=== PATIENT | female | born 1995 | race Caucasian/White ===

== ENCOUNTER → 2017-10-05 16:05 | Outpatient (CLI) | payer OTHER, SELFPAY | PROVIDERS: Visit Provider Nurse Practitioner Women's Health | DX: Z12.4 Encounter for screening for malignant neoplasm of cervix (principal) ==

== ENCOUNTER → 2017-11-12 16:19 | Outpatient (CLI) | payer OTHER, SELFPAY ==
--- NOTE | 2017-11-12 16:21 | US_ITS ---
STUDY: ULTRASOUND TRANSVAGINAL CLINICAL: Female, 22 years old. Lower pelvic pain TECHNIQUE: Transvaginal COMPARISON: None. FINDINGS: Normal uterine size measuring 12.6 x 5.6 x 4.4 cm in maximal craniocaudal dimension. It is retroverted. There are no myometrial masses. Normal endometrial thickness measuring 12 mm and appears hyperechoic. There are no endometrial masses, and there is no fluid in the endometrial cavity. Nabothian cysts at the uterine cervix. Normal right ovary, measuring 4.3 x 3.3 x 1.8 cm. There are multiple follicles. A complex 2.1 x 1.6 x 1.2 cm cystic nodule is noted. Normal left ovary, measuring 3.6 x 2.1 x 1.8 cm. There are multiple follicles without a dominant cyst. There is moderate free fluid in the pelvis. US/Pelvic (Non ) IMPRESSION: Complex right adnexal cystic nodule. Slightly thickened endometrium. Retroverted uterus. Electronically Signed: Eric Meredith DO at 18:14 EST Tel [phone], Service support ,
--- NOTE | 2017-11-12 16:21 | US_ITS ---
STUDY: ULTRASOUND TRANSVAGINAL CLINICAL: Female, 22 years old. Lower pelvic pain TECHNIQUE: Transvaginal COMPARISON: None. FINDINGS: Normal uterine size measuring 12.6 x 5.6 x 4.4 cm in maximal craniocaudal dimension. It is retroverted. There are no myometrial masses. Normal endometrial thickness measuring 12 mm and appears hyperechoic. There are no endometrial masses, and there is no fluid in the endometrial cavity. Nabothian cysts at the uterine cervix. Normal right ovary, measuring 4.3 x 3.3 x 1.8 cm. There are multiple follicles. A complex 2.1 x 1.6 x 1.2 cm cystic nodule is noted. Normal left ovary, measuring 3.6 x 2.1 x 1.8 cm. There are multiple follicles without a dominant cyst. There is moderate free fluid in the pelvis. US/Transvaginal Non- IMPRESSION: Complex right adnexal cystic nodule. Slightly thickened endometrium. Retroverted uterus. Electronically Signed: Eric Meredith DO at 18:14 EST Tel [phone], Service support ,
== END ==
PROVIDERS: Visit Provider Obstetrics & Gynecology
DX: N80.9 Endometriosis, unspecified (principal)
CPT/HCPCS: 76830; 76856; 93976

== ENCOUNTER 2017-12-02 16:19 | Emergency (ER) | payer OTHER, SELFPAY ==
[2017-12-02 16:20] VITALS: BP 146/97; PULSE 85; RESP 16; TEMP 37.1; O2SAT 100; BMI 26.9
--- NOTE | 2017-12-02 16:54 | US_ITS ---
STUDY: ULTRASOUND TRANSVAGINAL CLINICAL: Female, 22 years old. Right lower quadrant pain TECHNIQUE: Transvaginal COMPARISON: None. FINDINGS: Normal uterine size measuring 7.9 x 5.2 x 4.4 cm in maximal craniocaudal dimension. It is retroverted. There are no myometrial masses. Normal endometrial thickness measuring 9 mm. There are no endometrial masses, and there is no fluid in the endometrial cavity. Nabothian cysts at the uterine cervix. Normal right ovary, measuring 4.3 x 3.3 x 2.3 cm. There is a 2.3 x 1.7 x 1.4 cm cyst. Normal left ovary, measuring 3.6 x 2.0 x 1.5 cm. There are multiple follicles. US/Transvaginal Non- IMPRESSION: Retroverted uterus. Nabothian cysts. Right ovarian cyst. Mild free fluid. Electronically Signed: Eric Meredith DO at 18:37 EDT Tel [phone], Service support ,
[2017-12-02] MEDS: Ketorolac 30 MG/ML Syringe IV (17:31)
[2017-12-02] MEDS: Ondansetron 4 MG/2 ML Vial IV ×2 (17:31→18:38)
[2017-12-02 17:48] LABS: Mucous, Urine 0 SEEN /hpf (<or=2+); Red Blood Cells-Urine 0 SEEN /hpf (0-5); White Blood Cells 0 SEEN /hpf (0-5)
[2017-12-02 17:51] LABS: Absolute Lymphocyte Count 2.47 X10^3/ul (0.83-4.51); Absolute Neutrophil Count 4.3 X10^3/uL (2.0-7.7); Basophil# 0.03 X10^3/uL; Basophil% 0.4 % (0-1); Hematocrit 38.9 % (37-47); Hemoglobin 13.5 g/dl (12.0-15.0); Lymphocyte # 2.47 X10^3/ul (4.0); Lymphocyte % 30.1 % (19-41); Mean Corp Hgb Conc 34.7 g/gl (32-36); Mean Corpuscular Hgb 32.1 pg (27.0-32.0); Mean Corpuscular Volume 92.6 fL (81-99); Mean Platelet Vol. 9.7 fl (6.2-12.0); Monocyte# 0.51 X10^3/uL; Monocyte% 6.2 % (0-10); Neutrophil # 4.25 X10^3/uL (2.7-7.7); Neutrophil % 51.8 % (47-70); Platelet Count 255 K/mm3 (150-450); RBC Distribution Width CV 12.1 % (11.6-14.6); RBC Distribution Width SD 40.4 fl (35.1-43.9); White Blood Count 8.2 K/mm3 (4.4-11.0)
[2017-12-02 17:54] LABS: POSITIVE COUNT NO; POSITIVE DIFFERENTIAL NO; POSITIVE MORPHOLOGY NO
[2017-12-02 17:57] LABS: Color, Urine Yellow (Yellow); Glucose, Dipstick Normal (Normal); Ketone-Dipstick Negative (Negative); Leukocyte Esterase-Dipstick Negative /ul (Negative); Nitrite-Dipstick Negative (Negative); Occult Blood-Urine Negative /ul (Negative); Protein-Dipstick Negative (Negative); Specific Gravity, Urine 1.015 (1.002-1.030); Urine Bilirubin Dipstick Negative (Negative); Urine Clarity Clear (Clear); Urine Urobilinogen Normal (Normal)
[2017-12-02 18:10] LABS: Anion Gap 5 (5-15); BUN 12 mg/dL (7-18); BUN/Creat Ratio 15.1 RATIO (10-20); Calcium,Total 8.5 mg/dL (8.5-10.1); Chloride 106 mmol/L (98-107); EST Glomerular Filtration Rate 94 mL/min (>60); Est Glom Filt Rate - Afr Amer 113 mL/min (>60); Estimated Creatinine Clearance 101.51 ml/min; Glucose 83 mg/dL (74-106); Potassium 3.5 mmol/L (3.5-5.1); Sodium Level 139 mmol/L (136-145)
[2017-12-02 18:26] LABS: Bacteria RARE /hpf (None Seen); Squamous Epithelial Cells - UA 0-5 SEEN /hpf (5-10)
[2017-12-02 18:33] LABS: Pregnancy, Serum, hCG Quali. NEGATIVE Negative (0-9 Nonpreg)
[2017-12-02] MEDS: Morphine 4 MG/ML Syringe IV (18:38)
--- NOTE | 2017-12-02 19:29 | ED.VISSUMM ---
- ER Visit Summary Date of Service: 12/02/17 Chief Complaint: Abdominal pain History of Present Illness: The patient is a 22 F with a 3 day history of right lower quadrant abdominal pain. She denies fever or chills. She denies nausea, vomiting, or diarrhea. Pain is not worsened with food. She does state pain is somewhat worse with movement. She tried taking a leftover Percocet last night without significant improvement. Patient does have a known history of endometriosis and is scheduled for surgery in the coming weeks. Physical Examination: Vital signs are unremarkable. Patient is in no acute distress and is nontoxic appearing. Head and neck examination is unremarkable. Heart is regular rate and rhythm. On lung sounds are clear. Abdomen is soft with focal tenderness in the right lower quadrant. There is no guarding or rebound. Test Results: CBC and chemistry studies are normal. Urinalysis is normal. test is negative. Pelvic ultrasound reveals a right ovarian cyst. Mild free fluid is noted. Good blood flow is noted to both ovaries. Emergency Department Course and Treatment: Patient initially declined anything for pain and then asked for something. She is given Toradol and Zofran. Following her ultrasound she requested something stronger and was given a dose of morphine. I spoke with Dr. Constantino, her reception. She is comfortable with this prescribing Percocet for the patient. Test results were discussed with the patient and questions were answered. Treatment Plan: [] Disposition: Discharge Impression: Right ovarian cyst This note was generated with [employer] dictation software. It may contain incorrect words, spelling, and punctuation that were not noted in review of the chart prior to signing ED Disposition - Plan for ED Patient: Disposition: Home or Assisted Living Chief Complaint: Abd Pain Instructions: ED Cyst Ovarian Prescriptions: Oxycodone HCl/Acetaminophen [Percocet 5/325] 1 - 2 tablet PO Q6H PRN PRN 4 Days #20 tablet PRN Reason: Pain Referrals: Malcolm Stallings MD [Primary Care Provider] - Latosha Constantino MD [STAFF PHYSICIAN] - 5-7 Days
--- NOTE | 2017-12-02 19:32 | DCINST.ED_ITS ---
ED Disposition - Plan for ED Patient: Disposition: Home or Assisted Living Chief Complaint: Abd Pain Instructions: ED Cyst Ovarian Prescriptions: Oxycodone HCl/Acetaminophen [Percocet 5/325] 1 - 2 tablet PO Q6H PRN PRN 4 Days #20 tablet PRN Reason: Pain Referrals: Malcolm Stallings MD [Primary Care Provider] - Latosha Constantino MD [STAFF PHYSICIAN] - 5-7 Days
[2017-12-02 19:44] VITALS: BP 125/79; PULSE 64; RESP 16; O2SAT 98
== END 2017-12-02 19:45 | disposition home or self-care (01) ==
PROVIDERS: Emergency Provider Emergency Medicine; Family Provider Family Medicine; PCP Family Medicine
DX: N83.201 Unspecified ovarian cyst, right side (principal); N80.9 Endometriosis, unspecified; Z79.891 Long term (current) use of opiate analgesic; Z72.0 Tobacco use
CPT/HCPCS: 76830; 80048; 81001; 84703; 85025; 93976; 96374; 96375; 96376; 99283; A4216; J2405

== ENCOUNTER → 2017-12-03 18:26 | Outpatient (CLI) | payer OTHER, SELFPAY ==
--- NOTE | 2017-12-03 18:33 | US_ITS ---
STUDY: ULTRASOUND OF THE PELVIS CLINICAL: Female, 22 years old. Right lower quadrant pain TECHNIQUE: Transvaginal and transabdominal COMPARISON: None. FINDINGS: Normal uterine size measuring 7.6 x 4.6 x 5.8 cm in maximal craniocaudal dimension. It is retroverted There are no myometrial masses. The endometrial thickness measures 9 mm with mild heterogeneity. There are no endometrial masses, and there is no fluid in the endometrial cavity. Nabothian cysts at the uterine cervix. Normal right ovary, measuring 4.8 x 3.2 x 2.3 cm. There is a 2.5 x 2 x 1.4 cm cyst. Normal left ovary, measuring 3.4 x 2.1 x 1.5 cm. There are multiple follicles without a dominant cyst. There is mild free fluid in the pelvis. The urinary bladder measures 249 cc in volume with debris noted. US/Transvaginal Non- IMPRESSION: Retroverted uterus. Mildly heterogeneous endometrium. Right ovarian cyst. Mild pelvic fluid. There is debris within the urinary bladder. Infectious etiology cannot be excluded. Electronically Signed: Eric Meredith DO at 22:02 EDT Tel [phone], Service support ,
--- NOTE | 2017-12-03 19:07 | US_ITS ---
STUDY: ULTRASOUND OF THE PELVIS CLINICAL: Female, 22 years old. Right lower quadrant pain TECHNIQUE: Transvaginal and transabdominal COMPARISON: None. FINDINGS: Normal uterine size measuring 7.6 x 4.6 x 5.8 cm in maximal craniocaudal dimension. It is retroverted There are no myometrial masses. The endometrial thickness measures 9 mm with mild heterogeneity. There are no endometrial masses, and there is no fluid in the endometrial cavity. Nabothian cysts at the uterine cervix. Normal right ovary, measuring 4.8 x 3.2 x 2.3 cm. There is a 2.5 x 2 x 1.4 cm cyst. Normal left ovary, measuring 3.4 x 2.1 x 1.5 cm. There are multiple follicles without a dominant cyst. There is mild free fluid in the pelvis. The urinary bladder measures 249 cc in volume with debris noted. US/Pelvic (Non ) IMPRESSION: Retroverted uterus. Mildly heterogeneous endometrium. Right ovarian cyst. Mild pelvic fluid. There is debris within the urinary bladder. Infectious etiology cannot be excluded. Electronically Signed: Eric Meredith DO at 22:02 EDT Tel [phone], Service support ,
== END ==
PROVIDERS: Family Provider Family Medicine; PCP Family Medicine; Visit Provider Obstetrics & Gynecology
DX: R10.31 Right lower quadrant pain (principal)
CPT/HCPCS: 76830; 76856; 93976

== ENCOUNTER 2017-12-09 10:19 | Day surgery (SDC) | payer SELFPAY ==
[2017-12-09] VITALS (7 sets, daily range): BP systolic 103–128; BP diastolic 68–82; PULSE 50–88; RESP 14–16; TEMP 36.2–37.6; O2SAT 97–100; BMI 26.2
[2017-12-09 10:41] LABS: Internal QC Validated? YES +Cl - CLEAR BKGD; Pregnancy, Urine Negative Negative
--- NOTE | 2017-12-09 12:35 | OV_PTH ---
PATIENT: LILIANA ROTH LOC: [facility] U#:[id number] AGE/SX: 22/F ROOM: RE12/09/[address]: Dr. Latosha Constantino MD : 1995 BED: DIS: 12/09/2017 SPEC #: [id number] RECD: 12/09/17 16:10 STATUS: JOYCE TRICIA #: [id number] MATTY: 12/09/17 12:[address]: Latosha Constantino DEPT: SURGICAL PATHOLOGY RECD BY: Raymond Scruggs ENTERED: 12/10/17 08:03 SP TYPE: OVARY OTHR DR: Dr. Malcolm Stallings MD Tissues: Right ovary Procedures: Surgery Specimen Level IV HEADER OPERATION: Diagnostic laparoscopy, ovarian cystectomy, oophorectomy PRE-OP DIAGNOSIS: Endometriosis, cyst of right ovary TISSUE SUBMITTED: Right ovary MICROSCOPIC DIAGNOSIS Right ovary, oophorectomy: Physiologic hemorrhagic follicular and corpus luteum cysts. SJ:annika 12/11/17 MICROSCOPIC DESCRIPTION Slides are reviewed. GROSS DESCRIPTION Received in fixative is one container labeled with the patient's name and designated right ovary. The specimen consists of a smooth, glistening, white-pradhan ovary measuring 4 x 3 x 2.2 cm and weighing 12.2 gm. The external surface is smooth and glistening. No papillary projections or excrescences are identified. The external surface is inked and the specimen serially sectioned. Sections reveal multiple cysts ranging in size from 0.2 to 1 cm and containing clear to bloody fluid. [employer] sections are submitted in four cassettes. / AM:annika 12/10/17 TC:5 CPT: 92480
[2017-12-09] MEDS: Bupivacaine 0.25% 30 ML Vial (13:30)
--- NOTE | 2017-12-09 14:42 | DCINST_ITS ---
Discharge Diet: No Restrictions - Increase fluid intake for the next 48 hours. Discharge Activity: Return to Normal Activity, May Drive - when you are no longer taking narcotic pain medications., May Shower, May Take a Tub Bath - in 7 days Additional Activity Instructions:: Ambulate often the next week after surgery. Nothing in the vagina for 5 days. Call your doctor if your incision/area has: Continuous Slow Oozing, Sudden Increased Bleeding, Increased Pain/ Swelling, Increased Redness, Foul Smelling Discharge Call your doctor if you observe: Fever of 101 or Higher Allergies/Adverse Reactions: Allergies No Known Allergies Allergy (Verified 12/08/17 16:01) Medications to take at Discharge naproxen 500 mg tablet,delayed release 500 mg PO BID PRN #30 tab 10/05/17 Oxycodone HCl/Acetaminophen [Percocet 5/325] 1 - 2 tab PO Q6H PRN PRN 4 Days # 20 tab 12/02/17 Ibuprofen [Advil] 200 mg PO Q4H PRN PRN 12/08/17 Naproxen [Naprosyn] 250 - 500 mg PO Q8H PRN PRN #30 tab 12/09/17 Naproxen [Naprosyn] 250 - 500 mg PO Q8H PRN PRN #30 tab 12/09/17 Oxycodone HCl/Acetaminophen [Percocet 5-325] 1 - 2 tablet PO Q4H PRN PRN 3 Days #15 tablet 12/09/17 The following prescriptions were given: Oxycodone HCl/Acetaminophen [Percocet 5-325] 1 - 2 tablet PO Q4H PRN PRN 3 Days #15 tablet PRN Reason: Pain Naproxen [Naprosyn] 250 - 500 mg PO Q8H PRN PRN #30 tab PRN Reason: MILD PAIN Naproxen [Naprosyn] 250 - 500 mg PO Q8H PRN PRN #30 tab PRN Reason: MILD PAIN Primary Care Physician: Malcolm Stallings MD [Primary Care Provider] - Please Follow Up With: Latosha Constantino MD - [phone]
[2017-12-09] MEDS: Ketorolac 30 MG/ML Syringe IV (14:53)
--- NOTE | 2017-12-09 14:53 | OP.PCM_ITS ---
Problem List (1) Ovarian cyst Status: Acute Qualifiers: Comment: Right side (2) Endometriosis Status: Chronic Comment: failed OCP, IUD, Nuvaring. plan diagnostic laparoscopy then continuous ocp versus depot lupron. Report of Operation Date of Procedure: 12/09/17 Pre-Operative Diagnosis: right pelvic pain, endometriosis, right ovarian cyst Post-Operative Diagnosis: same Surgery/Procedure Performed:: diagnostic laparoscopy right salpingooophorectomy Description of Surgical Findings:: Enlarged right multicystic ovary with increased blood flow hemorrhagic cyst and irregular appearance normal pelvis normal appendix normal liver and gallbladder co director: Magdi Rodrigues Type of Anesthesia:: General Specimen's removed: ovary Estimated Blood Loss (mL): minimal Fluids Replaced: crystalloid Description of Procedure: Patient was taken to the operating room and placed under general anesthesia was prepped and draped in normal sterile fashion in the dorsal lithotomy position. Bladder was drained of clear urine and SCDs on preoperatively. Uterine manipulator was placed inside the uterus after the uterus sounded 9 cm. Attention was paid to the abdomen and an infraumbilical incision was made and Veress needle entered into the abdomen confirmed the intra-abdominal with an opening pressure of 0 mmHg. Abdomen was insufflated with CO2 gas to allow passage of a veres needle. A 5 mm port was placed the umbilicus under direct visualization and right and left lower quadrant 5 mm ports were also placed under direct visualization. Pelvis was well visualized and the right ovary was noted to be significantly enlarged with a multicystic appearance and increased blood flow. Patient had a history of reporting severe pain in this area and requested removal. Multiple incisions were made into the ovary to help open up and dissected tissue and it was multicystic and irregular in appearance. The decision was made to remove the right ovary. Using LigaSure device the infundibulopelvic ligament and the utero-ovarian ligament were incised and the ovary was removed. The rest the pelvis and upper abdomen were well visualized and noted be within normal limits. No significant endometriosis was seen. Left ovary and fallopian tube are noted to be within normal limits. The ovary was removed through an enlarged umbilical port site which was then closed with a Levy Osman with an 0 Vicryl into the fascia. Left lower quadrant ports removed under direct visualization and all instruments removed from the abdomen and vagina. Port sites were closed with 3-0 Monocryl. Patient was awoken and taken recovery in stable condition Grafts/Implants Used: none - Complications none
[2017-12-09] MEDS: HYDROcodone Bitartrate/Apap 5/325 Tablet PO (15:32)
== END 2017-12-09 16:13 | disposition home or self-care (01) ==
LOC: SDC 10:21 → AC 10:22
PROVIDERS: Anesthesiology; Family Provider Family Medicine; PCP Family Medicine; Visit Provider Obstetrics & Gynecology
PROC: (CPT 58661; principal; 2017-12-09 12:20)
DX: N83.11 Corpus luteum cyst of right ovary (principal); N83.01 Follicular cyst of right ovary; N80.9 Endometriosis, unspecified; R10.2 Pelvic and perineal pain; F17.200 Nicotine dependence, unspecified, uncomplicated; Z79.1 Long term (current) use of non-steroidal anti-inflammatories (NSAID); Z79.891 Long term (current) use of opiate analgesic
CPT/HCPCS: 58661; 36415; 81025; 86850; 86900; 88305; J7120; J2405

== ENCOUNTER → 2018-02-16 15:39 | Outpatient (CLI) | payer OTHER, SELFPAY ==
[2018-02-16 17:20] LABS: Estradiol 53.7 pg/mL; Thyroid Stim Hormone (TSH) 1.62 uIU/mL (0.358-3.74)
== END ==
PROVIDERS: Family Provider Family Medicine; PCP Family Medicine; Visit Provider Obstetrics & Gynecology
DX: N92.6 Irregular menstruation, unspecified (principal)
CPT/HCPCS: 36415; 82670; 83001; 84443

== ENCOUNTER → 2018-06-08 11:27 | Outpatient (CLI) | payer OTHER, SELFPAY ==
[2018-06-08 12:39] LABS: hCG Titer Quant., Serum 1468 mIU/mL (<9 non-preg)
== END ==
PROVIDERS: Family Provider Family Medicine; PCP Family Medicine; Referring Provider Family Medicine; Visit Provider Obstetrics & Gynecology
DX: O20.0 Threatened abortion (principal)
CPT/HCPCS: 36415; 84702

== ENCOUNTER → 2018-06-10 14:29 | Outpatient (CLI) | payer OTHER, SELFPAY ==
[2018-06-10 17:46] LABS: hCG Titer Quant., Serum 3137 mIU/mL (<9 non-preg)
== END ==
PROVIDERS: Family Provider Family Medicine; PCP Family Medicine; Visit Provider Obstetrics & Gynecology
DX: O20.0 Threatened abortion (principal)
CPT/HCPCS: 36415; 84702

== ENCOUNTER → 2018-06-28 15:58 | Outpatient (CLI) | payer OTHER, SELFPAY ==
--- NOTE | 2018-06-28 16:00 | US_ITS ---
STUDY: FIRST TRIMESTER OBSTETRICAL ULTRASOUND REASON FOR EXAM: Female, 23 years old. DATES / VIABILITY LMP: TECHNIQUE: Transvaginal TECHNICAL QUALITY: Adequate. PRIOR ULTRASOUND: Prior comparison studies are not available for review at this time. FINDINGS: There is visualization of a single gestational sac in a normal intrauterine position. The mean sac diameter (MSD) measures 30mm, indicating an estimated gestational age (EGA) of 8 weeks, 2 days. The gestational sac shape is within normal limits. There is a visualized yolk sac. The yolk sac measures 3.5mm. The placenta is non-visualized. There is visualization of a live embryo. The crown-rump length (CRL) measures 13mm, indicating an estimated gestational age (EGA) of 7 weeks, 4 days. There is demonstrated cardiac activity with a heart rate of 160 bpm. The estimated gestation age (EGA) by LMP is 7 weeks, 3 days. The estimated date of delivery (RAAD) by LMP is 6.7.19. The estimated gestation age (EGA) by US is 8 weeks, 0 days. The estimated date of delivery (RAAD) by US is 6.03.19. The uterus measures [id number]. There is no demonstrated uterine fibroid. The cervix is closed. The right ovary is not seen. The left ovary measures 40 x 22 x 23mm. There is no left ovarian cyst. There is no visualized left adnexal mass or complex lesion. There is no fluid in the cul de sac. US/Transvaginal w/Preg US IMPRESSION: There is a single live intrauterine with a heart rate of 160 bpm. The estimated gestation age (EGA) by US is 8 weeks, 0 days. The estimated date of delivery (RAAD) by US is 6.03.18. Electronically Signed: Lukasz Jara MD at 22:24 EDT , Service support ,
== END ==
PROVIDERS: Family Provider Family Medicine; PCP Family Medicine; Referring Provider Obstetrics & Gynecology; Visit Provider Obstetrics & Gynecology
DX: O09.10 Supervision of pregnancy with history of ectopic pregnancy, unspecified trimester (principal)
CPT/HCPCS: 76817

== ENCOUNTER → 2018-07-05 10:48 | Outpatient (CLI) | payer OTHER, SELFPAY ==
[2018-07-05 12:37] LABS: Absolute Lymphocyte Count 1.31 X10^3/ul (0.83-4.51); Absolute Neutrophil Count 4.1 X10^3/uL (2.0-7.7); Basophil# 0.01 X10^3/uL; Basophil% 0.2 % (0-1); Eosinophil# 0.08 X10^3/uL; Eosinophils% 1.3 % (0-5); Hematocrit 34.8 % (37-47); Hemoglobin 12.1 g/dl (12.0-15.0); Lymphocyte # 1.31 X10^3/ul (4.0); Lymphocyte % 21.5 % (19-41); Mean Corp Hgb Conc 34.8 g/gl (32-36); Mean Corpuscular Hgb 32.2 pg (27.0-32.0); Mean Corpuscular Volume 92.6 fL (81-99); Mean Platelet Vol. 9.9 fl (6.2-12.0); Monocyte# 0.53 X10^3/uL; Monocyte% 8.7 % (0-10); Neutrophil # 4.14 X10^3/uL (2.7-7.7); Platelet Count 259 K/mm3 (150-450); RBC Distribution Width SD 39.5 fl (35.1-43.9); Red Blood Count 3.76 M/mm3 (4.2-5.4); White Blood Count 6.1 K/mm3 (4.4-11.0)
[2018-07-05 12:41] LABS: POSITIVE COUNT NO; POSITIVE DIFFERENTIAL NO; POSITIVE MORPHOLOGY NO
[2018-07-05 13:32] LABS: HIV - WCH Non-Reactive (Nonreactive); Rubella IgG 101.6 IU/mL
[2018-07-05 20:36] LABS: Chlamydia Trachomatis by PCR Negative (Negative); Neisserai gonorrhoeae by PCR Negative (Negative); Probe Check PASS; Sample Adequacy Control PASS; Specimen Processing Control PASS
[2018-07-06 10:55] LABS: HEPATITIS B SURFACE AG Negative (Negative)
[2018-07-09 01:58] LABS: Rapid Plasmin Reagin (RPR) NONREACTIVE (NONREACTIVE)
== END ==
PROVIDERS: Nurse Practitioner Women's Health; Referring Provider Obstetrics & Gynecology; Visit Provider Obstetrics & Gynecology
DX: Z34.90 Encounter for supervision of normal pregnancy, unspecified, unspecified trimester (principal)
CPT/HCPCS: 85025; 86592; 86703; 86762; 86850; 86900; 87086; 87340; 87491; 87591

== ENCOUNTER → 2018-10-18 10:58 | Outpatient (CLI) | payer OTHER, SELFPAY ==
[2018-10-18 10:33] VITALS: BMI 24.5
== END ==
PROVIDERS: Family Provider Family Medicine; PCP Family Medicine; Referring Provider Nurse Practitioner Women's Health; Visit Provider Nurse Practitioner Women's Health
DX: O26.892 Other specified pregnancy related conditions, second trimester (principal); R10.2 Pelvic and perineal pain; Z3A.00 Weeks of gestation of pregnancy not specified
CPT/HCPCS: 87070; 87086; 87205

== ENCOUNTER → 2018-11-05 14:05 | Outpatient (CLI) | payer OTHER, SELFPAY ==
[2018-11-05 13:47] VITALS: BMI 24.5
[2018-11-05 15:13] LABS: Absolute Lymphocyte Count 1.53 X10^3/ul (0.83-4.51); Absolute Neutrophil Count 6.3 X10^3/uL (2.0-7.7); Basophil# 0.01 X10^3/uL; Basophil% 0.1 % (0-1); Eosinophils% 1.2 % (0-5); Hematocrit 30.4 % (37-47); Hemoglobin 10.5 g/dl (12.0-15.0); Lymphocyte # 1.53 X10^3/ul (4.0); Lymphocyte % 18.1 % (19-41); Mean Corp Hgb Conc 34.5 g/gl (32-36); Mean Corpuscular Hgb 32.6 pg (27.0-32.0); Mean Corpuscular Volume 94.4 fL (81-99); Mean Platelet Vol. 9.4 fl (6.2-12.0); Monocyte# 0.44 X10^3/uL; Monocyte% 5.2 % (0-10); Neutrophil % 74.6 % (47-70); POSITIVE COUNT NO; POSITIVE DIFFERENTIAL NO; POSITIVE MORPHOLOGY NO; Platelet Count 208 K/mm3 (150-450); RBC Distribution Width CV 12.7 % (11.6-14.6); RBC Distribution Width SD 43.3 fl (35.1-43.9); Red Blood Count 3.22 M/mm3 (4.2-5.4); White Blood Count 8.5 K/mm3 (4.4-11.0)
[2018-11-05 15:32] LABS: Glucose Challenge Gest 1H 50g 159 mg/dL (70-140)
== END ==
PROVIDERS: Family Provider Family Medicine; PCP Family Medicine; Referring Provider Obstetrics & Gynecology; Visit Provider Obstetrics & Gynecology
DX: Z34.90 Encounter for supervision of normal pregnancy, unspecified, unspecified trimester (principal)
CPT/HCPCS: 36415; 82950; 85025

== ENCOUNTER → 2018-11-11 08:02 | Outpatient (CLI) | payer OTHER, SELFPAY ==
[2018-11-05 13:47] VITALS: BMI 24.5
[2018-11-11 08:46] LABS: Glucose GTT-Gestation. Fasting 91 mg/dL (<105)
[2018-11-11 09:59] LABS: Glucose GTT-Gestational 1 Hr 188 mg/dL (<190)
[2018-11-11 10:55] LABS: Glucose GTT-Gestational 2 Hr 143 mg/dL (<165)
[2018-11-11 11:46] LABS: Glucose GTT-Gestational 3 Hr 58 L (<145)
== END ==
PROVIDERS: Family Provider Family Medicine; PCP Family Medicine; Referring Provider Obstetrics & Gynecology; Visit Provider Obstetrics & Gynecology
DX: O99.810 Abnormal glucose complicating pregnancy (principal); Z3A.00 Weeks of gestation of pregnancy not specified
CPT/HCPCS: 36415; 82951; 82952

== ENCOUNTER 2019-01-20 05:10 | Outpatient (CLI) | payer OTHER, SELFPAY ==
[2019-01-12 11:02] VITALS: BMI 27.2
[2019-01-20 06:16] VITALS: BMI 28.3
--- NOTE | 2019-01-27 21:01 | OB.TRI.PN_ITS ---
Progress Notes Date of Service: 01/20/19 Progress Note: Patient presented with irregular contractions no cervical change heart tones 130s moderate variability reactive no decelerations category 1 tracing [place]: Irregular Assessment and plan false labor DC home labor precautions reactive NST
== END 2019-01-20 06:15 | disposition home or self-care (01) ==
LOC: WPOUT 06:05 → WP 06:06
PROVIDERS: Family Provider Family Medicine; PCP Family Medicine; Referring Provider Obstetrics & Gynecology; Visit Provider Obstetrics & Gynecology
DX: O47.9 False labor, unspecified (principal); Z3A.00 Weeks of gestation of pregnancy not specified
CPT/HCPCS: 59025; 59050; 99218; G0378

== ENCOUNTER → 2019-01-21 | Outpatient (CLI) | payer OTHER, SELFPAY ==
[2019-01-21 14:22] VITALS: BMI 28.3
== END | disposition home or self-care (01) ==
PROVIDERS: Family Provider Family Medicine; PCP Family Medicine; Referring Provider Obstetrics & Gynecology; Visit Provider Obstetrics & Gynecology
DX: Z34.93 Encounter for supervision of normal pregnancy, unspecified, third trimester (principal)
CPT/HCPCS: 87081

== ENCOUNTER 2019-02-02 00:28 | Outpatient (CLI) | payer OTHER, SELFPAY ==
[2019-01-26 10:28] VITALS: BMI 28.3
[2019-02-02 01:01] VITALS: BMI 29.2
--- NOTE | 2019-02-02 02:06 | OB.TRI.PN_ITS ---
Progress Notes Date of Service: 02/02/19 Progress Note: contractions no vb lof fht 130 moderate variability reactive no decelerations category I tracing [place]: irregular 2-3 cm a/p false labor no cervical change dc home
== END 2019-02-02 02:15 | disposition home or self-care (01) ==
LOC: WPOUT 00:58 → WP 00:58
PROVIDERS: Family Provider Family Medicine; PCP Family Medicine; Visit Provider Obstetrics & Gynecology
DX: O47.9 False labor, unspecified (principal); Z3A.00 Weeks of gestation of pregnancy not specified
CPT/HCPCS: 59025; 59050; 99218; G0378

== ENCOUNTER 2019-02-06 20:45 | Inpatient (IN) | payer OTHER, SELFPAY ==
[2019-02-04 13:50] VITALS: BMI 29.2
[2019-02-06 10:45] VITALS: BMI 28.7
[2019-02-06 20:41] LABS: ROM Internal Control Test YES-OK TO RESULT pt. (Internal QC)
[2019-02-06 20:43] LABS: ROM Patient Test POSITIVE (Negative)
[2019-02-06] MEDS: Lactated Ringers 1,000 ML 50 ML IV ×2 (21:15→22:15)
--- NOTE | 2019-02-06 21:26 | HP.PCM_ITS ---
- Problem List (1) SROM (spontaneous rupture of membranes) Status: Acute (2) Abnormal glucose affecting Status: Acute Comment: Normal 3GTT (3) Anemia affecting Status: Acute Qualifiers: (4) Depression affecting Status: Acute Comment: did not take zoloft (5) Syncope Status: Acute Qualifiers: (6) Status: Acute Qualifiers: Comment: declines genetic screen, AFP. MFM anatomy US- 09/13/17 normal pt notified. 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 plan diagnostic laparoscopy then continuous ocp versus depot lupron. 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 she has had prodromal contractions for several days and denies any issues. she denies vb and admits good fm. Medical History: Medical History (Last Reviewed 02/04/19 @ 13:49 by Cristy Anne) Syncope (Acute) R55 (Acute) Z34.90 declines genetic screen, AFP. MFM anatomy US- 09/13/17 normal pt notified. Supervision of normal (Acute) Z34.90 PRR RAAD 02/11/19 boy PC:Michael :Taj Prior child unilateral cleft lip/palate (Chronic) Ovarian cyst (Chronic) N83.209 Right side Endometriosis (Chronic) N80.9 failed OCP, IUD, Nuvaring. plan diagnostic laparoscopy then continuous ocp versus depot lupron. Endometriosis N80.9 Hypertension affecting in first trimester (Resolved) O16.1 Surgical History: Surgical History (Last Reviewed 02/04/19 @ 13:49 by Cristy Anne) H/O laparoscopy Z98.890 History of right oophorectomy Z90.721 fallopian tube removed Allergies No Known Allergies Allergy (Verified 02/06/19 20:18) Home Medications: Home Medications docosahexanoic acid 200 mg capsule 1 cap PO DAILY cap 07/05/18 Acyclovir 400 mg PO BID 02/02/19 Smoking Status: Light Smoker (<10/day) History Past Pregnancies: Past Pregnancies Pregancy History 3 Elective abortions Hx Para 1 Spontaneous abortions Hx # Term Pregnancies Ectopic pregnancies 1 Hx # Pregnancies Multiple births # of living children Past Pregnancies Del. Date Name GA/Weeks Outcome Route Bth Weight Gen Labor Lgth Anesthesia Del Locatn Provider FOB 01/19/15 Michael 40 live - full term 7lbs 1.2oz Male [address] [facility] Dr. Valle 01/05/17 ectopic salpingectomy Delivery Date: 01/05/17 No notes to display Delivery Date: 01/19/15 On 07/05/18 @ 09:48 Shital Vazquez No issues during . No issues during delivery. Michael has cleft palate. Labs: Mom's Problem List Problem Status Onset Code SROM (spontaneous rupture of membranes) Acute Mom's Labs & Results 02/06/19 02/06/19 02/06/19 20:05 21:15 21:15 WBC Pending RBC Pending Hgb Pending Hct Pending MCV Pending MCH Pending MCHC Pending RDW Pending RDW Differential Pending Plt Count Pending Neut % (Auto) Pending Absolute Neuts (auto) Pending Total Counted Pending Vag Amniotic Fld Detect POSITIVE H Blood Type Pending Antibody Screen Pending Course Did the patient receive Yes care? Labs RPR/VDRL/Syphilis Nonreactive Rubella status Immune HbSAg Negative Date Done: 07/05/18 Chlamydia Negative Gonorrhea Negative HIV/AIDS Non-Reactive Group B Strep: Negative Social History Hx Smoking Yes Smoking Status Light Smoker (<10/day) Expected Delivery Method: Spontaneous Vaginal Review of Systems Constitutional: Denies: Fever, Malaise Eyes: Denies: Blurred vision, Vision Change HEENT: Denies: Head Aches, Visual Changes Cardiovascular: Denies: Chest Pain, Palpitations Respiratory: Denies: Cough, Shortness of Breath, Wheezing Gastrointestinal: Denies: Abdominal Pain, Diarrhea, Nausea, Vomiting Genitourinary: Denies: Dysuria, Hematuria Gynecological: Reports: Vaginal discharge Musculoskeletal: Denies: Joint Pain, Muscle pain Skin: Denies: Lesions, Rash Neurological: Denies: Blurred vision, Focal weakness, Headaches Psychiatric: Denies: Anxiety, Depression Endocrine: Denies: Heat/ Cold Intolerance Hematologic/ Lymphatic: Denies: Easy Bruising, Easy Bleeding Physical Exam General: Alert, Cooperative, No apparent distress HEENT: Atraumatic, Normocephalic. Negative for: Thyromegaly, Lymphadenopathy Cardiovascular: Regular rate Lungs: Normal air movement Abdomen: Soft, Non Tender, Gravid Neurological: Deep Tendon Reflexes 2+/4 and Symmetrical, Neuro grossly intact. Negative for: Clonus ELECTRONEURODIAGNOSTIC TECHNICIAN: Normal external genitalia. Negative for: Vulvar lesions Estimated gestational size: Appropriate for gestational size Presentation: Cephalic Assessment/Plan All Active Problems (Last Reviewed 02/04/19 @ 13:49 by Cristy Anne) SROM (spontaneous rupture of membranes) (Acute) Segmental and somatic dysfunction of pelvic region (Acute) Segmental and somatic dysfunction of lumbar region (Acute) Segmental and somatic dysfunction of sacral region (Acute) Abnormal glucose affecting (Acute) Anemia affecting (Acute) Depression affecting (Acute) Syncope (Acute) (Acute) Supervision of normal (Acute) HSV (Acute) Hypertension affecting in first trimester (Resolved) This is a 23 year-old, at 39 weeks gestational age presents with SROM Patient presents IAL, plan expectant management for , pitocin if needed. Pain management: Plans epidural. GBS negative. Management of any complications: None I have reviewed the [facility] and made any clinically relevant updates.
[2019-02-06 21:30] LABS: Absolute Lymphocyte Count 2.11 X10^3/ul (0.83-4.51); Absolute Neutrophil Count 8.1 X10^3/uL (2.0-7.7); Basophil# 0.01 X10^3/uL; Basophil% 0.1 % (0-1); Eosinophil# 0.13 X10^3/uL; Eosinophils% 1.2 % (0-5); Hematocrit 29.9 % (37-47); Hemoglobin 10.4 g/dl (12.0-15.0); Lymphocyte # 2.11 X10^3/ul (4.0); Lymphocyte % 18.8 % (19-41); Mean Corp Hgb Conc 34.8 g/gl (32-36); Mean Corpuscular Hgb 31.5 pg (27.0-32.0); Mean Corpuscular Volume 90.6 fL (81-99); Mean Platelet Vol. 9.9 fl (6.2-12.0); Monocyte# 0.78 X10^3/uL; Neutrophil % 72.1 % (47-70); Platelet Count 244 K/mm3 (150-450); RBC Distribution Width CV 13.5 % (11.6-14.6); RBC Distribution Width SD 44.4 fl (35.1-43.9); White Blood Count 11.2 K/mm3 (4.4-11.0)
[2019-02-06 21:32] LABS: POSITIVE COUNT NO; POSITIVE DIFFERENTIAL NO; POSITIVE MORPHOLOGY NO
[2019-02-06] MEDS: fentaNYL-bupivacaine (epidural) 100 ML BAG EPIDURAL (23:00)
[2019-02-06] MEDS: Ondansetron 4 MG/2 ML Vial IV (23:47)
[2019-02-07] MEDS: Oxytocin 30 units/NS 500 ml 30 UNITS/500 ML IV.SOLN 334 UNITS IV (02:49)
--- NOTE | 2019-02-07 02:59 | PCM.OPRPT ---
Problem List (1) SROM (spontaneous rupture of membranes) Status: Acute (2) Abnormal glucose affecting Status: Acute Comment: Normal 3GTT (3) Anemia affecting Status: Acute Qualifiers: (4) Depression affecting Status: Acute Comment: did not take zoloft (5) Syncope Status: Acute Qualifiers: (6) Status: Acute Qualifiers: Comment: declines genetic screen, AFP. MFM anatomy US- 09/13/17 normal pt notified. 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 plan diagnostic laparoscopy then continuous ocp versus depot lupron. (11) HSV Status: Acute Comment: valtrex at 36 weeks (12) Abnormal Pap smear of cervix Status: Chronic Comment: Cryo 2013 (13) Endometriosis determined by laparoscopy Status: Chronic Vaginal Delivery Maternal Presentation: Active Labor 23-year-old G3, P1 at 39 weeks 2 days presents in active labor with spontaneous rupture of membranes Amniotic Membrane Rupture Type: Spontaneous at home Amniotic Fluid Description: Lightly stained meconium Final RAAD: 02/11/19 Gestational age: 39 Weeks and 3 Days Date of Procedure: 02/07/19 Pre-Operative Diagnosis: In active labor Post-Operative Diagnosis: Same Surgery/ Procedure Performed: Spontaneous Vaginal Delivery Type of Anesthesia: Epidural Description of Procedure: Patient began pushing and delivered the head in the BEBETO presentation. The head was delivered atraumatically and a loose nuchal cord ?1 was identified and easily reduced over the 's head. The anterior and posterior shoulders delivered without complication followed by the rest of the infant and the was placed on the maternal abdomen. Delayed cord clamping was employed for approximately 60 seconds. Cord was clamped and cut and gentle traction was applied to the cord and the placenta delivered spontaneously immediately following it was noted to be intact with three-vessel cord. The perineum and vagina were inspected and noted to have a first-degree perineal laceration that was repaired in the usual fashion with 3-0 Vicryl repeat. EBL was 100 cc. Patient and tolerated delivery well. Presentation: BEBETO Placental Delivery Description: Spontaneous Placenta Disposition: [facility] Cord Vessel Description: 3 Vessels Cord Entanglement: Around neck x 1, loose Estimated Blood Loss: 100 Infant A gender: Male (1 minute): 8 (5 minute): 9 Episiotomy Description: None Laceration: Perineal Extension/lac, 1st degree Medications given after delivery: IV Pitocin Complications: None
[2019-02-07] MEDS: Oxytocin 30 units/NS 500 ml 30 UNITS/500 ML IV.SOLN 167 UNITS IV (03:19)
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
[2019-02-07 08:09] VITALS: BP 111/74; PULSE 69; RESP 18; TEMP 36.8
[2019-02-07] MEDS: Dibucaine 30 GM Tube 1 APPLIC TOPICAL (08:53)
[2019-02-07] MEDS: Naproxen 250 MG Tablet 500 MG PO ×2 (09:36→18:26)
[2019-02-07] MEDS: Senna/Docusate Sodium 1 Tablet PO (09:37)
[2019-02-07 12:05] VITALS: BP 113/70; PULSE 66; RESP 18; TEMP 36.8
[2019-02-07 16:00] VITALS: BP 120/75; PULSE 63; RESP 18; TEMP 36.6
[2019-02-07 19:40] VITALS: BP 126/85; PULSE 73; RESP 18; TEMP 36.4; O2SAT 98
[2019-02-07 23:45] VITALS: BP 116/70; PULSE 66; RESP 16; TEMP 36.7; O2SAT 99
[2019-02-08 03:30] VITALS: BP 121/78; PULSE 77; RESP 18; TEMP 36.2; O2SAT 99
--- NOTE | 2019-02-08 06:41 | PCM.PN.OB ---
Patient Problems: Active and Suspected Problems (Last Reviewed 02/04/19 @ 13:49 by Cristy Anne) SROM (spontaneous rupture of membranes) (Acute) Subjective: doing well no complaints pain controlled no CP SOB N V ambulating well tolerating po lochia moderate, going well - Physical Exam General: Alert, Oriented x3 Vital Signs Temp Pulse Resp BP Pulse Ox 97.1 F L 77 18 121/78 H 99 02/08/19 03:30 02/08/19 03:30 02/08/19 03:30 02/08/19 03:30 02/08/19 03:30 Oxygen Delivery Method Room Air Weight: 178 lb Body Mass Index (BMI) 28.7 Intake and Output for Last 24 Hours 02/06/19 02/07/19 02/08/19 23:59 23:59 23:59 Intake Total 1727 / 1727 Output Total 1300 / 1300 Balance 427 / 427 Medical Necessity - Tobacco Use Smoking Status: Light Smoker (<10/day) Assessment/Plan All Active Problems (Last Reviewed 02/04/19 @ 13:49 by Cristy Anne) SROM (spontaneous rupture of membranes) (Acute) Segmental and somatic dysfunction of pelvic region (Acute) Segmental and somatic dysfunction of lumbar region (Acute) Segmental and somatic dysfunction of sacral region (Acute) Abnormal glucose affecting (Acute) Anemia affecting (Acute) Depression affecting (Acute) Syncope (Acute) (Acute) Supervision of normal (Acute) HSV (Acute) Hypertension affecting in first trimester (Resolved) s/p PPD # 1 1. routine post delivery care 2. breast feeding- support given 3. rh positive 4. rubella immune
--- NOTE | 2019-02-08 06:42 | DCINST_ITS ---
Discharge Diet: No Restrictions Discharge Activity: Return to Normal Activity, May not drive while taking narcotic pain medications., May Shower May resume sexual activity in: 4-6 weeks Call your doctor if your incision/area has: Continuous Slow Oozing, Sudden Increased Bleeding, Increased Pain/ Swelling, Increased Redness, Foul Smelling Discharge Additional Instructions: If you experience any of the following, contact your healthcare provider. * Bleeding that soaks a pad every hour for 2 hours * Fever 100.4 or higher * Unrelieved incision or abdominal pain * Swelling, redness, discharge or bleeding from your incision or episiotomy site * Your incision begins to separate * Problems urinating (including inability to urinate or burning while urinating). * Visual changes * Severe headache * Flu-like symptoms * Pain or redness in one of both of your breasts * Pain, warmth, tenderness or swelling in your legs, especially the calf area * Frequent nausea and vomiting * Symptoms of depression or anxiety If you experience any of the following, call 911 or go to the nearest Emergency Room. * Chest pain * Problems breathing * Seizure activity * Partial or complete paralysis of a body part, slurred speech, weakness or drooping of the face, or a sudden inability to walk or hold your balance Allergies/Adverse Reactions: Allergies No Known Allergies Allergy (Verified 02/06/19 20:18) Medications to take at Discharge docosahexanoic acid 200 mg capsule 1 cap PO DAILY cap 07/05/18 Acyclovir 400 mg PO BID 02/02/19 Please Follow Up With: Latosha Constantino MD - [phone] When: Call to make an appointment with your doctor in 6 weeks. If you had elevated Blood pressure or 4th degree laceration you will need to be seen in 2 weeks. Primary Care Physician: Malcolm Stallings MD [Primary Care Provider] - Test Results: Test results from this visit will be discussed in further detail at your follow- up appointment, if applicable.
--- NOTE | 2019-02-08 06:42 | PCM.DCVAG ---
Discharge Diet: No Restrictions Discharge Activity: Return to Normal Activity, May not drive while taking narcotic pain medications., May Shower May resume sexual activity in: 4-6 weeks Call your doctor if your incision/area has: Continuous Slow Oozing, Sudden Increased Bleeding, Increased Pain/ Swelling, Increased Redness, Foul Smelling Discharge Additional Instructions: If you experience any of the following, contact your healthcare provider. Bleeding that soaks a pad every hour for 2 hours Fever 100.4 or higher Unrelieved incision or abdominal pain Swelling, redness, discharge or bleeding from your incision or episiotomy site Your incision begins to separate Problems urinating (including inability to urinate or burning while urinating). Visual changes Severe headache Flu-like symptoms Pain or redness in one of both of your breasts Pain, warmth, tenderness or swelling in your legs, especially the calf area Frequent nausea and vomiting Symptoms of depression or anxiety If you experience any of the following, call 911 or go to the nearest Emergency Room. Chest pain Problems breathing Seizure activity Partial or complete paralysis of a body part, slurred speech, weakness or drooping of the face, or a sudden inability to walk or hold your balance Allergies/Adverse Reactions: Allergies No Known Allergies Allergy (Verified 02/06/19 20:18) Medications to take at Discharge docosahexanoic acid 200 mg capsule 1 cap PO DAILY cap 07/05/18 Acyclovir 400 mg PO BID 02/02/19 Please Follow Up With: Latosha Constantino MD - [phone] When: Call to make an appointment with your doctor in 6 weeks. If you had elevated Blood pressure or 4th degree laceration you will need to be seen in 2 weeks. Primary Care Physician: Malcolm Stallings MD [Primary Care Provider] - Test Results: Test results from this visit will be discussed in further detail at your follow-up appointment, if applicable.
[2019-02-08 08:01] VITALS: BP 112/71; PULSE 62; RESP 16; TEMP 36.7
[2019-02-08] MEDS: Senna/Docusate Sodium 1 Tablet PO (10:56)
[2019-02-08] MEDS: Naproxen 250 MG Tablet 500 MG PO (10:56)
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
[2019-02-08 13:45] VITALS: BP 110/50; PULSE 72; RESP 16; TEMP 36.6
== END 2019-02-08 13:45 | disposition home or self-care (01) | DRG 807 ==
LOC: WPOUT 20:48 → WP 20:48
PROVIDERS: Admitting Provider Obstetrics & Gynecology; Family Provider Family Medicine; PCP Family Medicine; Visit Provider Obstetrics & Gynecology
DX: O99.02 Anemia complicating childbirth (principal); Z37.0 Single live birth; D64.9 Anemia, unspecified; O77.0 Labor and delivery complicated by meconium in amniotic fluid; O70.0 First degree perineal laceration during delivery; O69.81X0 Labor and delivery complicated by cord around neck, without compression, not applicable or unspecified; O99.334 Smoking (tobacco) complicating childbirth; Z3A.39 39 weeks gestation of pregnancy
CPT/HCPCS: 59025; 59050; 84112; 85025; 86850; 86900; 99218; J7120; G0378; J2405

== ENCOUNTER → 2019-06-21 | Outpatient (CLI) | payer OTHER, SELFPAY ==
[2019-06-20 09:26] VITALS: BMI 28.7
--- NOTE | 2019-06-21 11:24 | US_ITS ---
STUDY: ULTRASOUND OF THE FEMALE PELVIS - COMPLETE REASON FOR EXAM: Female, 24 years old. IUD placement, bleeding LMP: TECHNIQUE: Transabdominal and Transvaginal TECHNICAL QUALITY: Adequate. COMPARISON: June 28, 2018 FINDINGS: The uterus is retroverted and is in a midline position. The uterus measures 7.1 x 5.8 x 3.9 cm. Normal uterine cervix. The endometrium measures 6.3 mm in thickness, and is hyperechoic. There is no demonstrated endometrial mass. There is no demonstrated myometrial mass. I.U.D. - The patient does have an I.U.D. The right ovary is not visualized. And according to history has been removed. The left ovary is visualized. The left ovary measures 0.8 x 2.8 x 2.6 cm. There is no left ovarian cyst or ovarian mass. There is small left ovarian follicles measuring 9.4 and 8.6 mm. There is a mildly complex central follicle measuring 1.1 x 1.14 cm. There is normal arterial and normal venous vascularity. There is no fluid in the cul-de-sac. The bladder is normal in appearance on the transabdominal images. The bladder volume at the time of the transabdominal study is 812.3 mL. Polycystic ovary disease: No. US/Transvaginal Non- IMPRESSION: Retroverted uterus with IUD in appropriate location. Complex left ovarian follicle and/or follicles. Nonvisualization of the right ovary which according to history is been removed. Electronically Signed: Elizabeth Jack MD at 17:57 EDT Tel , Service support ,
--- NOTE | 2019-06-21 11:24 | US_ITS ---
STUDY: ULTRASOUND OF THE FEMALE PELVIS - COMPLETE REASON FOR EXAM: Female, 24 years old. IUD placement, bleeding LMP: TECHNIQUE: Transabdominal and Transvaginal TECHNICAL QUALITY: Adequate. COMPARISON: June 28, 2018 FINDINGS: The uterus is retroverted and is in a midline position. The uterus measures 7.1 x 5.8 x 3.9 cm. Normal uterine cervix. The endometrium measures 6.3 mm in thickness, and is hyperechoic. There is no demonstrated endometrial mass. There is no demonstrated myometrial mass. I.U.D. - The patient does have an I.U.D. The right ovary is not visualized. And according to history has been removed. The left ovary is visualized. The left ovary measures 0.8 x 2.8 x 2.6 cm. There is no left ovarian cyst or ovarian mass. There is small left ovarian follicles measuring 9.4 and 8.6 mm. There is a mildly complex central follicle measuring 1.1 x 1.14 cm. There is normal arterial and normal venous vascularity. There is no fluid in the cul-de-sac. The bladder is normal in appearance on the transabdominal images. The bladder volume at the time of the transabdominal study is 812.3 mL. Polycystic ovary disease: No. US/Pelvic (Non ) IMPRESSION: Retroverted uterus with IUD in appropriate location. Complex left ovarian follicle and/or follicles. Nonvisualization of the right ovary which according to history is been removed. Electronically Signed: Elizabeth Jack MD at 17:57 EDT Tel , Service support ,
== END | disposition home or self-care (01) ==
LOC: US 11:22
PROVIDERS: Family Provider Family Medicine; PCP Family Medicine; Referring Provider Nurse Practitioner Women's Health; Visit Provider Nurse Practitioner Women's Health
DX: Z30.431 Encounter for routine checking of intrauterine contraceptive device (principal)
CPT/HCPCS: 76830; 76856; 93976

== ENCOUNTER 2020-06-10 02:10 | Emergency (ER) | payer OTHER, SELFPAY ==
[2020-05-15 13:42] VITALS: BMI 28.7
[2020-06-10 02:11] VITALS: BP 152/101; PULSE 93; RESP 15; TEMP 36.4; O2SAT 100; BMI 22.5
--- NOTE | 2020-06-10 02:39 | ED.VIS.GEN ---
History of Present Illness Chief Complaint: Dental Informant: Patient Narrative: Patient is a 25-year-old previously healthy female who presents to the emergency department for dental pain. This has been present over the past 5 days. The past 24 hours is becoming very painful. She is having sensitivities to both cold and heat. She denies any significant swelling. The majority the pain is on the right lower side. She states she has had cavities before in the past but not in this location of the pain. She denies any headache or ear pain. No vision changes. No neck pain. No cough cold congestion. No fevers or chills. She has been feeling slightly nauseous due to the pain. Has been taking Tylenol for this which has not been giving significant relief. She currently rates the pain as a 7 out of 10. Past Medical History - Allergies and Home Meds Allergies/Adverse Reactions: Allergies No Known Allergies Allergy (Verified 06/10/20 02:10) Primary Care Physician: Malcolm Stallings MD [Primary Care Provider] - Smoking Status: Former smoker Review of Systems All systems negative except as indicated General: Denies: Chills, Fever, Sweats Eyes: Denies: Visual changes - bilaterally, Diplopia ENT: Denies: Bilateral ear pain, Rhinorrhea, Sore throat Cardiovascular: Denies: Chest pain, Palpitations Respiratory: Denies: Dyspnea, Cough, Dyspnea on exertion Gastrointestinal: Reports: Nausea. Denies: Abdominal pain, Vomiting Musculoskeletal: Denies: Neck pain Skin: Denies: Rash Neurological: Denies: Headache Allergy: Denies: Swelling of the mouth, Swelling of the tongue Physical Exam Vital Signs/Narrative: Vital Signs Temp Pulse Resp BP Pulse Ox 06/10/20 02:11 97.6 F L 93 15 152/101 H 100 Inital Vital Signs reviewed: Yes General: Well nourished, Well developed, No Acute Distress Head: Normocephalic, Atraumatic Eyes: Perrl, EOMI ENT: Moist mucous membranes, No rhinorrhea, TM's clear, - - No appreciable swelling. No drainable abscess present. No tonsillar exudates. Uvula midline. Neck: Supple, Nontender, No lymphadenopathy Cardiovascular: Regular rate, Regular rhythm, No murmurs Respiratory: No distress, CTA bilaterally, Chest nontender Abdomen: Soft, Nondistended Extremities: Nontender, No edema Skin: Normal color, No rash Neurological: Alert, Cranial nerves II-XII grossly intact, Normal Strength, Normal Sensation Psychological: Normal affect, Normal Mood Diagnostic/Tx/Re-eval - Medical Decision Making Patient presents to the emerge department for dental pain including hot and cold sensitivities. He believes she does have a dental abscess. There is nothing drainable on physical exam. Vital signs within normal limits upon arrival. She does not appear in any acute distress. Will treat with antibiotics. She given first dose here in the ED. She is given a dose of Toradol. Patient denies any chance of being . We will have her follow-up with a dentist and she is provided a list of dentists in the area. Warning signs and symptoms which to return to the ED are reviewed with her. She understands and is agreeable this plan. Will discharge home in stable condition. ED Disposition - Plan for ED Patient: Disposition: Home or Assisted Living Diagnosis: Pain, dental Instructions: Dental Abscess Bad tableReferrals: Malcolm Stallings MD [Primary Care Provider] - Additional Instructions: Please follow up with your dentist in 3-5 days.
[2020-06-10] MEDS: Penicillin Vk 250 MG Tablet 500 MG PO (02:45)
[2020-06-10] MEDS: Ketorolac 30 MG/ML Syringe IM (02:45)
--- NOTE | 2020-06-10 13:03 | ED.RN ---
PATIENT CALLS REQUESTING THAT HER PEN V K RX BE SENT TO [facility] IN [place], IT WAS PREVIOUSLY SENT TO [facility] THAT IS NOT OPEN ON THURSDAY. DR. GIBSON MADE AWARE. RX SENT TO REQUESTED PHARMACY.
== END 2020-06-10 03:08 | disposition home or self-care (01) ==
LOC: ED 02:42
PROVIDERS: Emergency Provider Emergency Medicine; PCP Family Medicine
DX: K08.89 Other specified disorders of teeth and supporting structures (principal); Z87.891 Personal history of nicotine dependence
CPT/HCPCS: 96372; 99284